=== PATIENT | male | born 1955 ===

== ENCOUNTER 2020-03-21 09:01 | Observation (INO) ==
[2020-03-21] MEDS ORDERED: DEXTROSE 50% 25 GM/50 ML VIAL IV PRN ×2 (12:59)
[2020-03-21] MEDS ORDERED: GLUCAGON 1 MG VIAL IM PRN ×2 (12:59)
[2020-03-21] MEDS ORDERED: ACETAMINOPHEN 325 MG TABLET PO PRN (12:59)
[2020-03-21] MEDS: INSULIN LISPRO 100 UNIT/ML SUBCUT SCH ×2 (15:56→20:14)
[2020-03-21] MEDS: APIXABAN 5 MG TABLET PO SCH (20:44)
[2020-03-21] MEDS ORDERED: ONDANSETRON 4 MG TABLET PO PRN (23:08)
[2020-03-22 04:19] LABS: Basophils % 0.5 % (0.0-0.8); Eosinophils # 0.2 10*3/uL (0.0-0.87); Eosinophils % 3.2 % (0.00-10.9); Hematocrit 30.9 VOL% (42.0-52.0); Hemoglobin 10.2 GM/DL (14.0-18.0); Immature Granulocytes % 3.1 %; Immature Granulocytes Absolute 0.19 #; Lymphocytes # 0.6 10*3/uL (1.4-4.0); Lymphocytes % 10.1 % (21.2-54.2); Mean Corpuscular Volume 107.7 FL (87-102); Mean Platelet Volume 9.5 FL (9.6-12.0); Monocytes % 14.5 % (1.7-12.7); NRBC # 0.02 10*3/uL; Neutrophils % 68.6 % (38.7-73.9); Platelet Count 131 T/CUMM (130-400); Red Blood Count 2.87 MC/CUMM (3.8-5.5); Red Cell Distribution Width 18.1 % (9.3-17.3); White Blood Count 6.2 T/CUMM (4-12)
[2020-03-22] MEDS: INSULIN LISPRO 100 UNIT/ML SUBCUT SCH ×2 (07:50→11:28)
[2020-03-22] MEDS ORDERED: CALCIUM (CARBONATE) 500 MG TABLET PO SCH (09:00)
[2020-03-22] MEDS ORDERED: MULTIVITAMIN (CENTRUM) TABLET PO SCH (09:00)
[2020-03-22] MEDS: APIXABAN 5 MG TABLET PO SCH (09:16)
[2020-03-22 11:32] VITALS: BP 123/100
[2020-03-22] MEDS ORDERED: HEPARIN LOCK FLUSH 500 UNIT/5 ML SYRINGE IV ONE (12:54)
== END 2020-03-22 13:10 | disposition home or self-care (01) ==
LOC: N.ULTRA 09:01 → SUATTDRO 12:04 → INTOOBSV 12:04 → N.4E 12:04
PROVIDERS: ADMIT Internal Medicine; ATTEND Internal Medicine